=== PATIENT | female | born 1955 | race Caucasian/White ===

== ENCOUNTER 2020-05-25 14:47 | Emergency (ER) | payer BC, SELFPAY ==
--- NOTE | ~2020-05-25 | XR_ITS ---
EXAMINATION: XR ankle LT min 3V DATE: 05/25/2020 15:46 INDICATION: Left ankle injury and pain. TECHNIQUE: 4 views of left ankle were obtained. COMPARISON: None. FINDINGS: Bone alignment is normal. No fracture. There is mild osteoarthritis of talonavicular joint. There is well-corticated heterotopic ossification distal to medial malleolus. IMPRESSION: 1. No acute fracture. Reviewed, dictated and finalized at location A. IMPRESSION: 1. No acute fracture.
[2020-05-25 14:52] VITALS: BP 172/72; PULSE 70; RESP 18; TEMP 36.7; O2SAT 100
--- NOTE | 2020-05-25 15:08 | PC.NURSE ---
Patient reports a fall this AM at approximately 0530 stating that she missed the last step. Reports complaints of pain to right forearm after the fall but states complaint of pain to left ankle was not noticed until she was out walking around at approximately 1300 today. At this time she reports severe pain with any movement or weight bearing in her left ankle. Palpation to back of ankle and lateral ankle elicit complaint of pain. There is no deformity or obvious injury noted.
--- NOTE | 2020-05-25 15:28 | ED.LOWEXIN ---
HPI - Extremity Injury (Lower) General Chief Complaint: Extremity Injury, Lower Stated Complaint: fall, L ankle pain Time Seen by Provider: 05/25/20 15:10 Source: patient Mode of arrival: wheelchair Limitations: no limitations History of Present Illness HPI Narrative: This is a 64-year-old female that presents to the emergency department for left ankle injury today. Reports she was walking down steps and missed the last step. Reports initially the ankle was not bothering her. Reports the more that she ambulated today she started to have pain and swelling to the left lateral ankle. Reports pain makes it difficult for her to ambulate. Denies hitting her head, loss of consciousness, other injuries, decreased range of motion, or numbness. Related Data Allergies Allergy/AdvReac Type Severity Reaction Status Date / Time lisinopril Allergy Unknown Cough Verified 05/25/20 15:14 Penicillins Allergy Unknown Hives Verified 05/25/20 15:14 Review of Systems Review of Systems: Narrative: CONSTITUTIONAL: Denies fever MUSCULOSKELETAL: Reports joint pain, and myalgia. NEUROLOGIC: Denies numbness All systems reviewed & are unremarkable except as noted in HPI and below PMFSH Family History Family History (Updated 02/16/16 @ 13:42 by DOCTOR UNKNOWN) Father Family history of congestive heart failure Patient's father is Mother Patient's mother is Social History Social History Smoking status: Never smoker Second hand tobacco smoke exposure: No Alcohol intake: current Exam Narrative: Exam Narrative: GENERAL: Well-appearing, well-nourished, and in no acute distress. HEAD: Normocephalic, atraumatic. EYES: EOMI. CHEST: Clear to auscultation. No respiratory distress. No wheezes rales or rhonchi HEART: Regular rate and rhythm. No murmur heard. Normal peripheral pulses. EXTREMITIES: Normal range of motion. Mild swelling about the left lateral ankle. Normal DP pulses. Normal sensation SKIN: Warm, dry, no rash. NEURO: No focal deficits. Alert and oriented x3. PSYCH: Normal mood and affect Course Vital Signs Vital signs: Vital Signs Temperature 98.0 F 05/25/20 14:52 Pulse Rate 70 05/25/20 14:52 Respiratory Rate 18 05/25/20 14:52 Blood Pressure 172/72 H 05/25/20 14:52 Pulse Oximetry 100 05/25/20 14:52 Temperature 98.0 F 05/25/20 14:52 Pulse Rate 70 05/25/20 14:52 Respiratory Rate 18 05/25/20 14:52 Blood Pressure 172/72 H 05/25/20 14:52 Pulse Oximetry 100 05/25/20 14:52 MDM - Extremity Injury (Lower) MDM Narrative Medical decision making narrative: Patient presents to the department for left ankle pain after an injury today. Left ankle x-rays without acute findings. Patient was instructed on care of ankle sprain. She is to follow-up with primary care doctor. She was given warnings to return to the ER Imaging Data Radiologist's impression: ITS Impressions Ankle X-Ray 05/25/20 15:55 IMPRESSION: 1. No acute fracture. Critical Care Time Critical Care Time Critical Care Time: No Discharge Plan Discharge Clinical Impression: Ankle sprain and strain Patient Disposition: Home, Self-Care Condition: Stable Instructions: Ankle Sprain (ED) Additional Instructions: Return to the emergency department if you experience fever, redness and swelling of your leg, or any other symptoms that are concerning to you Wear JONATHAN wrap and use crutches. No weight on the affected leg until able to bear weight without pain. Ice and elevate extremity. Tylenol or ibuprofen as needed for pain Follow up with your doctor for further care. Prescriptions: No Action levothyroxine 100 mcg tablet 100 mcg PO DAILY Qty: 90 RF: 1 Follow-up/Referrals: Bethel Conrad PA-C [Primary Care Provider] - 1 Week
[2020-05-25 17:20] VITALS: BP 165/83; PULSE 68; RESP 19; TEMP 36.2; O2SAT 96
== END 2020-05-25 17:22 | disposition home or self-care (01) ==
PROVIDERS: Emergency Provider Emergency Medicine; PCP Physician Assistant
DX: S93.402A Sprain of unspecified ligament of left ankle, initial encounter (principal); S96.912A Strain of unspecified muscle and tendon at ankle and foot level, left foot, initial encounter; W10.9XXA Fall (on) (from) unspecified stairs and steps, initial encounter
CPT/HCPCS: 73610; 99283

== ENCOUNTER 2021-12-14 09:27 | Outpatient (CLI) | payer MEDICARE, SELFPAY ==
--- NOTE | ~2021-12-14 | MM_ITS ---
EXAMINATION: MM scrn rakan implant BI w jose manuel HISTORY: Screening mammogram TECHNIQUE: Craniocaudal and mediolateral oblique 3-D tomosynthesis images with implant displacement a nd synthetic 2-D images were generated. Craniocaudal and mediolateral oblique views of the breasts wi thout implant displacement were obtained using full field digital mammography. CAD analysis was submi tted and interpreted. COMPARISON: 11/25/2014 BREAST PARENCHYMAL COMPOSITION: There are scattered areas of fibroglandular density. FINDINGS: There is no evidence of suspicious mass, calcification, or architectural distortion to sugg est malignancy in either breast. There has been no suspicious interval change. IMPRESSION: 1. No mammographic evidence of malignancy. 2. Recommend routine screening mammography in one year. BI-RADS Category 1: Negative Reviewed, dictated and finalized at location A. ER WATCHMAN
== END 2021-12-14 09:28 | disposition home or self-care (01) ==
LOC: ANHIMG 09:32
PROVIDERS: PCP Physician Assistant; Visit Provider Physician Assistant
DX: Z12.31 Encounter for screening mammogram for malignant neoplasm of breast (principal)
CPT/HCPCS: 77063; 77067

== ENCOUNTER 2023-04-15 14:57 | Emergency (ER) | payer MEDICARE, SELFPAY ==
--- NOTE | 2023-04-15 15:00 | ED.EYEPROB ---
HPI - Eye Problem General Chief complaint: Eye Problems Stated complaint: Eyes Irritation Time Seen by Provider: 04/15/23 15:00 Source: patient Mode of arrival: ambulatory Limitations: no limitations History of Present Illness HPI Narrative: Patient is a 67-year-old female that presents with bilateral eye irritation and discharge that started yesterday. Patient states she wore her 1 contact today with no increased irritation. Denies any contact with someone with pinkeye. Has also had hoarse voice for a week and a half, but states she has felt fine. Denies any blurred vision, fever, chills, nausea, vomiting, diarrhea Related Data Allergies Allergy/AdvReac Type Severity Reaction Status Date / Time lisinopril Allergy Unknown Cough Verified 04/15/23 15:31 Penicillins Allergy Unknown Hives Verified 04/15/23 15:31 Review of Systems Review of Systems: All systems reviewed & are unremarkable except as noted in HPI and below Constitutional: Constitutional: Denies body ache(s), Denies fever(s), Denies headache(s), Denies malaise and Denies weakness Eyes: Eyes: Denies blurry vision, Reports eye discharge, Reports irritation, Reports itchy eyes, Denies loss of vision and Denies eye pain ENT: Denies otalgia, Denies headache(s), Denies nasal discharge, Denies sinus pain and Denies sore throat Cardiovascular: Cardiovascular: Denies chest pain, Denies irregular heart rhythm and Denies dyspnea Respiratory: Respiratory: Denies dyspnea Gastrointestinal: Gastrointestinal: Denies abdominal pain, Denies diarrhea, Denies nausea and Denies vomiting Musculoskeletal: Musculoskeletal: Denies back pain, Denies myalgias and Denies arthralgias Integumentary/Breasts: Skin/Breast: Denies pruritus and Denies rash Neurologic: Denies headache(s), Denies loss of vision and Denies weakness Psychiatric: Psychiatric: Reports no additional psychiatric complaints Allergic/Immunologic: Allergic/Immunologic: Reports itchy eyes PMFSH Past Medical History Medical History Left knee DJD Lump of right breast Right knee DJD Surgical History Surgical History H/O: hysterectomy History of bladder suspension procedure History of right knee surgery Dr. Edmond Family History Family History Father Family history of congestive heart failure Patient's father is Mother Patient's mother is Other Arthritis Cerebrovascular accident Diabetes mellitus Heart disease High cholesterol Hypertension Social History Social History Smoking status: Never smoker Second hand tobacco smoke exposure: No Alcohol intake: current Drinks per week: 1 Substance use type: does not use Lack of Transportation: No Lack of Food: Never True Current Housing: I Have Housing Concerned About Future Housing: No Difficulty Paying Gas/Electric Bills: No Difficulty Paying for Meds: No Currently Unemployed: No Education: High School Diploma/GED Difficulty w/ Childcare or Family Care: No Living arrangements: with family Gender identity (if verbalized by the patient): Female Comments At time of signature, agree with nursing past medical, surgical, social and family history. There is no relevant family history pertinent to the presenting complaint. Exam Const: General: cooperative, healthy appearing, comfortable, no acute distress and well nourished Nutritional Appearance: well nourished Orientation/consciousness: patient oriented x3 Limitations: no limitations HENMT: Head: normal to inspection, normocephalic and atraumatic Ears: external ears normal Face/Nose/Sinus: Normal external nose present, normal facial exam and face symmetric Face and sinus: normal facial exam and face symmetr
[2023-04-15 15:26] VITALS: BP 172/77; PULSE 66; RESP 12; TEMP 37.7; O2SAT 98
== END 2023-04-15 15:45 | disposition home or self-care (01) ==
PROVIDERS: Emergency Provider Nurse Practitioner Family; PCP Physician Assistant
DX: H10.9 Unspecified conjunctivitis (principal); M17.0 Bilateral primary osteoarthritis of knee
CPT/HCPCS: 99213; G0463

== ENCOUNTER 2023-05-24 15:11 | Emergency (ER) | payer MEDICARE, SELFPAY ==
[2023-05-24 15:24] VITALS: BP 177/87; PULSE 62; RESP 16; TEMP 36.3; O2SAT 99
--- NOTE | 2023-05-24 15:35 | ED.EYEPROB ---
HPI - Eye Problem General Chief complaint: Eye Problems Stated complaint: right eye irritation Time Seen by Provider: 05/24/23 15:30 Source: patient Mode of arrival: ambulatory Limitations: no limitations History of Present Illness HPI Narrative: Ms Walters is a 67-year-old female patient presenting to clinic today with complaints of right eye irritation and watering. She reports no injury or foreign body gotten into the eye. She denies any eye pain. Just have some red eye with some clear drainage. Related Data Allergies Allergy/AdvReac Type Severity Reaction Status Date / Time lisinopril Allergy Unknown Cough Verified 05/24/23 15:30 Penicillins Allergy Unknown Hives Verified 05/24/23 15:30 Review of Systems Review of Systems: Pertinent positives per HPI. Patient denies any fever, chills, rash, headache, visual changes, dizziness, cough, runny nose, sore throat, shortness of breath, chest pain, palpitations, nausea, vomiting, diarrhea, constipation, abdominal pain, or any urinary issues. PMFSH Past Medical History Medical History Left knee DJD Lump of right breast Right knee DJD Surgical History Surgical History H/O: hysterectomy History of bladder suspension procedure History of right knee surgery Dr. Edmond Family History Family History Father Family history of congestive heart failure Patient's father is Mother Patient's mother is Other Arthritis Cerebrovascular accident Diabetes mellitus Heart disease High cholesterol Hypertension Social History Social History Smoking status: Never smoker Second hand tobacco smoke exposure: No Alcohol intake: current Drinks per week: 1 Substance use type: does not use Lack of Transportation: No Lack of Food: Never True Current Housing: I Have Housing Concerned About Future Housing: No Difficulty Paying Gas/Electric Bills: No Difficulty Paying for Meds: No Currently Unemployed: No Education: High School Diploma/GED Difficulty w/ Childcare or Family Care: No Living arrangements: with family Gender identity (if verbalized by the patient): Female Comments At the time of my signature, I reviewed and agree with the nursing past medical, surgical, social, and family history. There is no relevant family history pertinent to the patient complaint. Exam Narrative: General: Well-developed, well nourished, in no apparent distress Head: Normocephalic, atraumatic Eyes: Pupils equally round and reactive to light bilaterally, EOM intact, left sclera and conjunctive clear, right sclera and conjunctiva injected,no active discharge, lids normal, no visible foreign body or stye Ears: TMs intact and clear, ear canals clear, no drainage, grossly hearing normal. Nose: Nares patent, no discharge, no inflammation, no sinus tenderness. Mouth: Oropharynx without lesions or masses, good dentition, MMM. Neck: Supple, trachea midline, no enlargement of anterior or posterior cervical nodes, no thyroid masses or goiter palpable. Cardio: Regular rate and rhythm, s1 and s2 normal, no murmur appreciated. Resp: Clear to auscultation bilaterally anteriorly and posteriorly, no rhonchi, rales, wheezing or rubs Course Course Emergency Course: Portions of this record may have been created with voice recognition software. Level of Care: Express Care Visit Vital Signs Vital signs: Vital Signs Temperature 36.3 C L 05/24/23 15:24 Pulse Rate 62 05/24/23 15:24 Respiratory Rate 16 05/24/23 15:24 Blood Pressure 177/87 H 05/24/23 15:24 Pulse Oximetry 99 05/24/23 15:24 Oxygen Delivery Room Air 05/24/23 15:24 Temperature 36.3 C L 05/24/23
== END 2023-05-24 15:45 | disposition home or self-care (01) ==
PROVIDERS: Emergency Provider Nurse Practitioner Family; PCP Physician Assistant
DX: H10.11 Acute atopic conjunctivitis, right eye (principal); M17.0 Bilateral primary osteoarthritis of knee
CPT/HCPCS: 99213; G0463

== ENCOUNTER 2023-07-18 07:25 | Outpatient (RCR) | payer MEDICARE, SELFPAY ==
--- NOTE | 2023-07-18 08:19 | OTOPEVAL1 ---
Assessment and note entered by Reginaldo Baker, VANI/Jessie, CHT Evaluation Information Assessment Status Evaluation Diagnosis Musculoskeletal pain left hand Subjective Information Patient reports feeling burning pain in her left hand for years when at work. 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 She points to the 1st dorsal interosseus muscle as the source of her pain. 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 Assessment OT Clinical Summary Patient referred to outpatient OT with left hand pain. She reports a decline in hand use due to pain localized to the 1st dorsal interosseus muscle. She has been instructed in modifying body mechanics to reduce repetitive strain here as well as soft tissue mobilization techniques and stretches. She reports good understanding of all materials. No further skilled OT indicated at this time. Plan of Care OT Services Indicated No These treatments will address the objective and functional deficits as defined above. The patient will be advanced safely and appropriately in order for the patient to progress towards his/her prior level of function. Additional exercises will be introduced and as well as a comprehensive home exercise program upon discharge, if needed, ?to ensure carryover of functional gains achieved in the clinic. This treatment plan has been reviewed and agreement upon by the patient.
== END 2023-07-21 09:04 | disposition home or self-care (01) ==
LOC: ANHOT 07:25
PROVIDERS: PCP Physician Assistant; Visit Provider Plastic Surgery
DX: M79.642 Pain in left hand (principal)
CPT/HCPCS: 97110; 97140; 97165

== ENCOUNTER 2024-09-21 13:03 | Outpatient (CLI) | payer MEDICARE, SELFPAY ==
--- NOTE | ~2024-09-21 | XR_ITS ---
HISTORY: M25.512 - Pain in left shoulder X 2 MONTH NKI, SCAPULAR PAIN COMPARISON: None TECHNIQUE: 4 views of the left shoulder were performed FINDINGS: No acute fracture. The glenohumeral and acromioclavicular joint space is maintained The visualized portion of the adjacent left lung is clear. The humeral head is well seated within the glenoid fossa. IMPRESSION: No acute fracture or anterior dislocation. Reviewed, dictated and finalized at location A. LEAD
--- NOTE | ~2024-09-21 | XR_ITS ---
CHEST RADIOGRAPH, PA AND LATERAL CLINICAL HISTORY: M25.512 - Pain in left shoulder SCAPULAR AREA X 2 MONTH NKI . COMPARISON: None available TECHNIQUE: PA and lateral views of the chest. FINDINGS The cardiomediastinal silhouette is unremarkable. The lungs are clear. Visualized osseous structures and soft tissues are unremarkable. IMPRESSION: No focal infiltrate or effusion. Reviewed, dictated and finalized at location A. ER PRESS OPERATOR
== END 2024-09-21 13:04 | disposition home or self-care (01) ==
PROVIDERS: PCP Nurse Practitioner Family; Visit Provider Nurse Practitioner Family
DX: M25.512 Pain in left shoulder (principal); R06.02 Shortness of breath
CPT/HCPCS: 71046; 73030

== ENCOUNTER 2024-12-17 08:42 | Outpatient (CLI) | payer MEDICARE, SELFPAY ==
--- NOTE | ~2024-12-17 | DEXA_ITS ---
Bone Density Report Name: JAZMÍN SOUSA Age: 68 Sex: Female Ethnicity: White Date of : 1955 Indication: postmenopausal; screening for osteoporosis; height loss; hysterectomy; Referring Provider: BRANDON GARNER Study: Bone densitometry was performed. Exam Date: December 17, 2024 Accession number: [id number] Bone Density: Region BMD T-score Z-score Classification AP Spine(L1-L4) 1.006 -0.4 1.7 Normal Femoral Neck (Left) 0.629 -2.0 -0.2 Osteopenia Total Hip (Left) 0.812 -1.1 0.4 Osteopenia Femoral Neck (Right) 0.672 -1.6 0.1 Osteopenia Total Hip (Right) 0.787 -1.3 0.2 Osteopenia Total Hip Mean 0.799 -1.2 0.3 Osteopenia World Health Organization criteria for BMD impression classify patients as: Normal (T-score at or above -1.0), Osteopenia (T-score between -1.0 and -2.5), or Osteoporosis (T-score at or below -2.5). 10-year Fracture Risk(1): Major Osteoporotic Fracture 6.0% Hip Fracture 1.0% Reported Risk Factors: [place] (), Neck BMD=0.629, BMI=31.9 (1) FRAX(R) Version 3.08. Fracture probability calculated for an untreated patient. Fracture probability may be lower if the patient has received treatment. Clinical Information Provided by Patient: Has used the following medications: Vitamin D, Calcium Has the following medical conditions: Hysterectomy Patient maximum height was 63 No regular weight bearing exercise Drinks caffeinated beverages Onset of menses at age 12 Number of children 3 Impression: The patient has low bone mass, based on the Left Femoral Neck T-score. The patient has an estimated ten-year risk of hip fracture of 1% and an estimated ten-year risk of major fracture of 6%, based on the WHO FRAX algorithm. Discussion: BONE DENSITY IS LOW AT ONE OR MORE SKELETAL SITES. This patient's lowest T-score is low at one or more skeletal sites. It meets the World Health Organization's (WHO) criteria for ?low bone mass? (T-score between -1.0 and -2.5). The patient's 10-year risk of fracture as calculated by FRAX is less than the threshold where pharmacological therapy is recommended by the National Osteoporosis Foundation (NOF). However, all treatment decisions require clinical judgment and consideration of individual patient factors, including patient preferences, comorbidities, previous drug use, risk factors not captured in the FRAX model (e.g., frailty, falls, vitamin D deficiency, increased bone turnover, interval significant decline in bone density) and possible under or overestimation of fracture risk by FRAX. The patient should follow a healthful lifestyle (good nutrition with adequate calcium and vitamin D, and appropriate weight-bearing exercise). Follow-Up: Consider repeating this study in 2 to 3 years to reassess this patient's status, or sooner if there is some new clinical indication. Reported by: WAI on 12/17/2024 9:15:00 AM. Reviewed, dictated and finalized at location AThea [facility] CENTERDebra
--- NOTE | ~2024-12-17 | MM_ITS ---
EXAMINATION: MM scrn rakan implant BI w jose manuel HISTORY: Screening mammogram TECHNIQUE: Craniocaudal and mediolateral oblique 3-D tomosynthesis images with implant displacement a nd synthetic 2-D images were generated. Craniocaudal and mediolateral oblique views of the breasts wi thout implant displacement were obtained using full field digital mammography. CAD analysis was submi tted and interpreted. COMPARISON: Comparison to multiple prior studies sequentially, with oldest reviewed study dated 11/25. BREAST PARENCHYMAL COMPOSITION: Dense: The breasts are heterogeneously dense, which may obscure small masses FINDINGS: There are bilateral subglandular silicone implants. There is no evidence of suspicious mass , calcification, or architectural distortion to suggest malignancy in either breast. There has been n o suspicious interval change. IMPRESSION: 1. No mammographic evidence of malignancy. 2. Recommend routine screening mammography in one year. BI-RADS Category 1: Negative Reviewed, dictated and finalized at location B. LITION HAMMER OPERATOR
--- OUTSIDE RECORDS SUMMARY | 2024-12-17 08:57 | XMS_ITS | Clinical Summary ---
Author Organization [facility] Address [facility] [place] [address] Care Team Providers Care Media Clerk Name Role Phone Bethel Conrad PA-C Primary Care Provider [phone] Allergies Active Allergy Reactions Criticality Noted Date Comments Penicillins Rash Low 05/13/2014 Medications levothyroxine 100 MCG tablet TK 1 T PO QD 0 10/11/2018 Active estradiol 0.5 MG tablet TK 1 T PO QD 2 10/03/2018 Active losartan 100 MG tablet TK 1 T PO QD 3 12/07/2018 Active Active Problems Problem Noted Date Diagnosed Date Primary osteoarthritis of both knees 09/18/2019 Primary osteoarthritis of left knee 12/14/2018 Vision changes 08/25/2015 Pain of knee and lower leg, right 08/25/2015 Eczema of both hands 01/27/2015 Hypothyroidism 05/13/2014 Arthritis 05/13/2014 Immunizations Name Administration Dates Next Due Influenza Adult (Generic) 11/18/2012 Family History Medical History Relation Comments Heart Father Lung Disease Mother Relation Status Comments Father Mother Social History Tobacco Use Types Packs/Day Years Used Date Smoking Tobacco: Never Smokeless Tobacco: Never Comments Unknown Sex and Gender Information Value Date Recorded Sex Assigned at Not on file Legal Sex Female 5:13 PM CDT Gender Identity Not on file Sexual Orientation Not on file Last Filed Vital Signs Vital Sign Reading Time Taken Comments Blood Pressure 124/66 09/18/2019 1:58 PM BLOOD BANK ATTENDANT Pulse 68 09/18/2019 1:58 PM BLOOD BANK ATTENDANT Temperature 36.8 C (98.3 F) 12/14/2018 8:53 AM BLOOD BANK ATTENDANT Respiratory Rate - - Oxygen Saturation - - Inhaled Oxygen Concentration - - Weight 63.5 kg (140 lb) 08/25/2015 9:50 AM CDT Height 160 cm (5' 3 ) 09/18/2019 1:58 PM BLOOD BANK ATTENDANT Body Mass Index 24.8 08/25/2015 9:50 AM CDT Plan of Treatment Health Maintenance Due Date Last Done Comments Colorectal Cancer Screening Colonoscopy (10 Years) 1955 Hepatitis C 1973 DTaP, Tdap and Td Vaccines ( 1 - Tdap) 1974 Mammogram Screening 1995 Zoster Vaccines (1 of 2) 2005 Dexa Scan (General) 2020 Pneumococcal Vaccine: 65+ Ye ars (1 of 1 - PCV) 2020 COVID-19 Vaccine (2023-2 5 season) 2024 Influenza Adult (#1) 2024 11/18/2012 RSV Immunization or 60+ Years (1 - 1-dose 75+ series) 2030 Meningococcal B Vaccine Aged Out No l onger eligible based on patient's age to complete this topic Meningococcal Vaccine Aged Out No ray hari eligible based on patient's age to complete this topic RSV Immunizations Under 20 Months Aged Out No longer eligible based on patient's age to complete this topic Insurance [id number] Care Teams Media Clerk Relationship Specialty Start Date End Date Bethel Conrad PA-C PCP - General PHYSICIAN CUSTOMER SALES ADVISOR 11/21/18
--- OUTSIDE RECORDS SUMMARY | 2024-12-17 08:57 | XMS_ITS | Patient Health Record ---
Author Organization [facility] Address [address] [place], [place] [id number] Care Team Providers Care Top Lifter Name Role Phone TURNER Jean Unavailable [phone] Bethel Conrad Unavailable Unavailable Reason For Referral No Information Plan Of Treatment No Information Insurance Providers Payer Name Payer Address Payer Phone Subscriber Number Group Number Insured Name Patient Relationship to Insured Coverage Start Date Coverage End Date Medicare Part B [place] [address] [place] [id number] JAZMÍN SOUSA Self - patient is the insured [employer] [place] [address] [address] [place] [address] [id number] JAZMÍN SOUSA Self - patient is the insured
== END 2024-12-17 08:43 | disposition home or self-care (01) ==
LOC: ANHIMG 08:43
PROVIDERS: PCP Nurse Practitioner Family; Visit Provider Nurse Practitioner Family
DX: Z12.31 Encounter for screening mammogram for malignant neoplasm of breast (principal); M85.89 Other specified disorders of bone density and structure, multiple sites; Z98.82 Breast implant status; Z78.0 Asymptomatic menopausal state
CPT/HCPCS: 77063; 77067; 77080